=== PATIENT | female | born 2000 | race Two or more races ===

== ENCOUNTER → 2020-02-12 | Outpatient (CLI) | payer BC, SELFPAY ==
[2020-02-14 20:07] LABS: Chlamydia By Nucleic Acid AMP Negative (Negative)
[2020-02-14 21:06] LABS: Gonococcus By Nucleic Acid AMP Negative (Negative)
[2020-02-15 20:41] LABS: HPV Reflexed? NOT INDICATED
== END | disposition home or self-care (01) ==
LOC: LABSPEC 11:52
PROVIDERS: Visit Provider Student in an Organized Health Care Education/Training Program
DX: Z12.4 Encounter for screening for malignant neoplasm of cervix (principal)
CPT/HCPCS: 87491; 87591; 88175; G0145

== ENCOUNTER → 2024-05-16 | Outpatient (CLI) | payer BC, SELFPAY | END | disposition home or self-care (01) | LOC: LABSPEC 16:38 | PROVIDERS: Referring Provider Nurse Practitioner Family; Visit Provider Nurse Practitioner Family | DX: Z12.4 Encounter for screening for malignant neoplasm of cervix (principal) | CPT/HCPCS: 88175; G0145 ==